=== PATIENT | male | born 1955 | race Caucasian/White ===

== ENCOUNTER 2017-04-25 13:31 | Emergency (ER) | payer OTHER ==
[~2017-04-25] VITALS: Ht 177.8 cm; Wt 77.3 kg
[2017-04-25] MEDS ORDERED: POVIDONE-IODINE 10% 15 ML SOLUTION UD ONE (13:44)
[2017-04-25] MEDS ORDERED: POVIDONE-IODINE 10% 120 ML SOLUTION TP ONE (13:46)
[2017-04-25 14:11] VITALS: BP 122/86
== END 2017-04-25 15:02 | disposition home or self-care (01) ==
LOC: EMS 13:42
DX: T73.0XXA Starvation, initial encounter (principal); E11.9 Type 2 diabetes mellitus without complications
CPT/HCPCS: 99283